=== PATIENT | male | born 1955 | race African-American/Black ===

== ENCOUNTER 2017-07-20 17:38 | Emergency (ER) | payer OTHER, MEDICAID ==
[~2017-07-20] VITALS: Ht 180.3 cm; Wt 63.0 kg
[2017-07-20] MEDS ORDERED: SODIUM CHLORIDE 0.9% 1,000 ML IV ONE (18:39)
[2017-07-20 19:18] LABS: BASOPHILS % 0.9 % (0.0-2.0); EOSINOPHILS % 0.9 % (0.0-5.0); HEMATOCRIT. 32.6 % (42.0-52.0); LYMPHOCYTES % 16.1 % (20.0-50.0); MEAN PLATELET VOLUME 7.2 fl (7.4-10.4); MONOCYTES % 16.4 % (2.0-8.0); NEUTROPHILS % 65.7 % (40.0-76.0); PLATELET 234 x1000/uL (130-400); RED BLOOD CELL COUNT 3.13 mill/uL (4.7-6.1); RED CELL DISTRIBUTION WIDTH 16.5 % (11.6-14.6)
[2017-07-20 19:26] LABS: D-DIMER 0.4 mg/L FEU (<0.50); INR 1.1; PARTIAL THROMBOPLASTIN TIME 27.8 sec (23.4-31.0); PROTHROMBIN TIME 11.4 sec (9.4-11.6)
[2017-07-20 19:30] VITALS: BP 90/65
[2017-07-20 19:32] LABS: CARBON DIOXIDE 32 mEq/L (21-32); CHLORIDE 103 mEq/L (98-107); TROPONIN I < 0.02 ng/mL (0.00-0.04)
== END 2017-07-20 19:50 | disposition left against medical advice (07) ==
LOC: ER 17:57
DX: J96.90 Respiratory failure, unspecified, unspecified whether with hypoxia or hypercapnia (principal); I95.9 Hypotension, unspecified; F17.200 Nicotine dependence, unspecified, uncomplicated; Z85.118 Personal history of other malignant neoplasm of bronchus and lung; Z92.21 Personal history of antineoplastic chemotherapy; Z98.890 Other specified postprocedural states
CPT/HCPCS: 36415; 80053; 83605; 83880; 84484; 85025; 85379; 85610; 85730; 86850; 86900; 87040; 96360; 99285; J7030